=== PATIENT | male | born 1990 | race Caucasian/White ===

== ENCOUNTER 2021-09-25 11:06 | Emergency (ER) | payer OTHER, SELFPAY ==
[2021-09-25 11:10] VITALS: BP 142/91; PULSE 89; RESP 18; TEMP 36.7; O2SAT 99; BMI 27.2
--- NOTE | 2021-09-25 11:13 | DI.RAD.S_ITS ---
PROCEDURE: XR ANKLE LT MIN 3V INDICATIONS: rolled left ankle, + swelling, no overt deformity TECHNIQUE: 3 views of the ankle were acquired. COMPARISON: None. FINDINGS: Bones: No fractures or dislocations. Ankle mortise is normally aligned. No suspicious bony lesions. Soft tissues: No tibiotalar joint effusion. Achilles tendon appears normal. Generalized soft tissue swelling noted. IMPRESSION: Soft tissue swelling without fracture or foreign body Approved by: Navi Mulligan M.D. on 09/25/2021 at 10:48
[2021-09-25 11:15] VITALS: PULSE 70
--- NOTE | 2021-09-25 12:01 | ED.LOWEXIN ---
HPI - Extremity Injury (Lower) General Chief Complaint: Extremity Injury, Lower Stated Complaint: Rolled left ankle, swollen Time Seen by Provider: 09/25/21 12:01 Source: patient Mode of arrival: Ambulatory History of Present Illness HPI Narrative: Patient is a 31-year-old male who presents with left ankle pain. He states that he was playing Frisbee golf yesterday when he rolled it. He has been able to walk on it without difficulty but is quite swollen. No numbness tingling or weakness. Related Data Home Medications Medication Instructions Recorded Confirmed No Known Home Medications 09/25/21 09/25/21 Allergies Allergy/AdvReac Type Severity Reaction Status Date / Time No Known Drug Allergies Allergy Verified 09/25/21 11:12 Review of Systems Review of Systems Narrative: GENERAL: Denies chills,fever HEENT: Denies throat pain RESPIRATORY: Denies dyspnea, cough, wheezing CARDIOVASCULAR: Denies chest pain, palpitations GASTROINTESTINAL: Denies nausea, vomiting MUSCULOSKELETAL: See HPI SKIN: No rash, no laceration, no pruritus NEUROLOGIC: Denies weakness, dizziness, headache, numbness 8 point review of systems is negative except for those stated above and HPI Patient History Social History Smoking Status: Never smoker Smoking Status: Never smoker alcohol intake frequency: 0-2 drinks per day Substance Use Type: does not use Exam Initial Vital Signs Initial Vital Signs: Vital Signs Temperature 98.1 F 09/25/21 11:10 Pulse Rate 89 09/25/21 11:10 Respiratory Rate 18 09/25/21 11:10 Blood Pressure 142/91 H 09/25/21 11:10 Pulse Oximetry 99 09/25/21 11:10 GENERAL: Well-appearing, well-nourished and in no acute distress. CARDIOVASCULAR: peripheral pulses in tact, cap refill <2 sec RESPIRATORY: No respiratory distress, speaks in full sentences without difficulty EXTREMITIES: Normal range of motion, no clubbing or edema. Neurovascularly intact Left lower extremity swelling bilaterally distal pedal pulse intact Achilles intact knee is stable ambulatory without difficulty NEUROLOGICAL: Cranial nerves II through XII grossly intact. Normal gait and speech. SKIN: Warm, dry, no petechiae, no rashes or lesions. Course Orders Ordered: ED Orders 09/25/21 11:13 XR ankle LT min 3V Stat Vital Signs Vital signs: Vital Signs - 8 hr 09/25/21 11:10 09/25/21 11:15 Temperature 98.1 F Pulse Rate 89 Pulse Rate [Left Dorsalis Pedis] 70 Respiratory Rate 18 Blood Pressure 142/91 H Pulse Oximetry 99 MDM - Extremity Injury (Lower) Imaging Data Extremity x-ray #1: Radiologist's Impression: PROCEDURE:? XR ANKLE LT MIN 3V ? INDICATIONS:? rolled left ankle, + swelling, no overt deformity ? TECHNIQUE:? 3 views of the ankle were acquired.? ? COMPARISON:? None. ? FINDINGS:? ? Bones:? No fractures or dislocations.? Ankle mortise is normally aligned.? No suspicious bony lesions.? ? Soft tissues:? No tibiotalar joint effusion.? Achilles tendon appears normal.? Generalized soft tissue swelling noted. ? ? IMPRESSION:? Soft tissue swelling without fracture or foreign body ? Approved by: Navi Mulligan M.D. on 09/25/2021 at 10:48? Discharge Plan Departure Patient Disposition: Home Clinical Impression: Ankle sprain and strain Instructions: DI for Ankle Sprain Activity Restrictions/Additional Instructions: *You have been diagnosed with left ankle sprain *What to do: Increase activity as tolerated weight bear as tolerated elevate ice try Jaydon wrap for ankle brace as needed *Continue to take medications as directed Ibuprofen 600 mg every 6 hours if needed for [id number] pain *Follow up with your primary care provider in 2-3 days or call [phone] *Return to ER if you should have increasing pain swelling or persistent pain for more than 10 days or any new, worsening or concerning symptoms Prescriptions: No Action No Known Home Medications 0RF
== END 2021-09-25 12:14 | disposition home or self-care (01) ==
PROVIDERS: Emergency Provider Emergency Medicine
DX: S93.402A Sprain of unspecified ligament of left ankle, initial encounter (principal); X50.1XXA Overexertion from prolonged static or awkward postures, initial encounter; Y93.74 Activity, frisbee
CPT/HCPCS: 73610; 99283

== ENCOUNTER 2021-10-06 13:25 | Emergency (ER) | payer OTHER, SELFPAY ==
[2021-10-06 13:59] VITALS: BP 158/86; PULSE 91; RESP 17; TEMP 36.6; O2SAT 97; BMI 27.9
--- NOTE | 2021-10-06 14:02 | DI.RAD.S_ITS ---
PROCEDURE: XR FOOT LT MIN 3V INDICATIONS: injury TECHNIQUE: 3 views of the foot were acquired. COMPARISON: None. FINDINGS: Bones: No acute fractures or dislocations. No suspicious bony lesions. Soft tissues: No suspicious soft tissue calcification. IMPRESSION: No acute osseous abnormality. If clinical suspicion and/or symptoms persist, additional imaging with repeat plain films, or advanced imaging (e.g. CT, MRI) may be helpful for further assessment. Dictated by: Keyon Beaulieu M.D. on 10/06/2021 at 14:37 Approved by: Keyon Beaulieu M.D. on 10/06/2021 at 14:40
--- NOTE | 2021-10-06 15:42 | ED.LOWEXIN ---
HPI - Extremity Injury (Lower) <SHERINE Connelly - Last Filed: 10/06/21 15:59> General Chief Complaint: Extremity Injury, Lower Stated Complaint: Pain in bottom of foot after sprained ankle Time Seen by Provider: 10/06/21 15:26 Source: patient Mode of arrival: Ambulatory History of Present Illness HPI Narrative: 31-year-old male presents to the emergency department with left lateral and medial ankle pain after he sprained his ankle in [place] last week. Patient has been ambulating but states that it is still painful, less painful on the lateral aspect now bit more painful on the medial side. He denies any plantar foot pain, dorsum foot pain. He states that there is some swelling, some bruising, he has had x-rays which did not show a fracture, he states that he is leaving for [place] tomorrow, and then to [place] afterwards and is concerned that he has been walking so much on it in is still is painful after week. Patient denies taking any pain medications today for this. Patient states that he is able to walk on it, he was walking on it a lot in [place] he states. Related Data Home Medications Medication Instructions Recorded Confirmed No Known Home Medications 09/25/21 10/06/21 Allergies Allergy/AdvReac Type Severity Reaction Status Date / Time No Known Drug Allergies Allergy Verified 10/06/21 14:01 Review of Systems <SHERINE Connelly - Last Filed: 10/06/21 15:59> Review of Systems Narrative: General: denies fever, chills, malaise, sweats, fatigue Head/Neck: denies headache, neck pain, dizziness Eyes: denies visual changes, eye pain Cardio: denies chest pain, palpitations, edema Respiratory: denies dyspnea, cough, orthopnea GI: denies abdominal pain, nausea, vomiting, or diarrhea : denies dysuria, hematuria, urinary retention, frequency or incontinence MSK: Endorses left ankle pain, denies muscle weakness Skin: denies rash, itching, skin lesions or other Neuro: denies numbness, tingling Patient History <SHERINE Connelly - Last Filed: 10/06/21 15:59> Social History Smoking Status: Never smoker Smoking Status: Never smoker alcohol intake frequency: a few times a month Substance Use Type: does not use Exam <SHERINE Connelly - Last Filed: 10/06/21 15:59> Narrative Exam Narrative: Independently reviewed vitals signs and nursing notes. General: Cooperative, comfortable, in no acute distress, well developed and well groomed Head/Neck: Normal visual inspection and supple, atraumatic, no JVD or lymphadenopathy. Normal facial exam Eyes: Pupils equal round and reactive, EOMI, conjunctiva normal, no scleral icterus or injections Nose: External nose normal, nares patent, no rhinorrhea, without purulent drainage Mouth/Throat: uvula midline, moist mucus membranes Cardio: Regular rate and rhythm, no peripheral edema, warm extremities Respiratory: Normal respiratory effort, able to speak in complete sentences without audible wheezing, stridor, or rales. No retractions. MSK: Moves all extremities, neurovascularly intact, no pain over medial or lateral malleolus, no pain over the proximal 5th metatarsal, edema and ecchymosis distal to medial and lateral malleoli, tender over her tibial calcaneal ligament, and tibiaonavicular ligament, range of motion intact, dorsiflexion and extension without deficit, cap refill less than 2 seconds, PT and DP pulses are 2+, no pain over Achilles tendon, 1st MTP joint Skin: Normal capillary refill, no rash Neuro: Normal speech and cognition, normal gait, A&O x3, tone normal, moves all extremities Psych: Mental status is grossly normal, speech is clear, congruent mood, normal affect Initial Vital Signs Initial Vital Signs: Vital Signs Temperature 98 F 10/06/21 13:59 Pulse Rate 91 H 10/06/21 13:59 Respiratory Rate 17 10/06/21 13:59 Blood Pressure 158/86 H 10/06/21 13:59 Pulse Oximetry 97 10/06/21 13:59 <Carlos Smith DO - Last Filed: 10/06/21 16:05> Initial Vital Signs Initial Vital Signs: Vital Signs Temperature 98 F 10/06/21 13:59 Pulse Rate 91 H 10/06/21 13:59 Respiratory Rate 17 10/06/21 13:59 Blood Pressure 158/86 H 10/06/21 13:59 Pulse Oximetry 97 10/06/21 13:59 Course <SHERINE Connelly - Last Filed: 10/06/21 15:59> Orders Ordered: ED Orders 10/06/21 14:02 XR foot LT min 3V Stat Discontinued Medications Acetaminophen (Acetaminophen 325 Mg Tablet) 975 mg PO NOW ONE Stop: 10/06/21 15:32 Last Admin: 10/06/21 15:53 Dose: 975 mg Documented by: ASHLYNETERSON Ketorolac Tromethamine (Ketorolac 30 Mg/Ml Vial) 15 mg IM NOW ONE Stop: 10/06/21 15:32 Last Admin: 10/06/21 15:53 Dose: 15 mg Documented by: KPETERSON Vital Signs Vital signs: Vital Signs - 8 hr 10/06/21 13:59 Temperature 98 F Pulse Rate 91 H Respiratory Rate 17 Blood Pressure 158/86 H Pulse Oximetry 97 <Carlos Smith DO - Last Filed: 10/06/21 16:05> Orders Ordered: ED Orders 10/06/21 14:02 XR foot LT min 3V Stat Discontinued Medications Acetaminophen (Acetaminophen 325 Mg Tablet) 975 mg PO NOW ONE Stop: 10/06/21 15:32 Last Admin: 10/06/21 15:53 Dose: 975 mg Documented by: KPETERSON Ketorolac Tromethamine (Ketorolac 30 Mg/Ml Vial) 15 mg IM NOW ONE Stop: 10/06/21 15:32 Last Admin: 10/06/21 15:53 Dose: 15 mg Documented by: KPETERSON Vital Signs Vital signs: Vital Signs - 8 hr 10/06/21 13:59 Temperature 98 F Pulse Rate 91 H Respiratory Rate 17 Blood Pressure 158/86 H Pulse Oximetry 97 MDM - Extremity Injury (Lower) <SHERINE Connelly - Last Filed: 10/06/21 15:59> Imaging Data Extremity x-ray #1: Radiologist's Impression: PROCEDURE:? XR FOOT LT MIN 3V ? INDICATIONS:? injury ? TECHNIQUE:? 3 views of the foot were acquired.? ? COMPARISON:? None. ? FINDINGS:? ? Bones:? No acute fractures or dislocations.? No suspicious bony lesions.? ? Soft tissues:? No suspicious soft tissue calcification. ? ? IMPRESSION:? No acute osseous abnormality.? If clinical suspicion and/or symptoms persist, additional imaging with repeat plain films, or advanced imaging (e.g. CT, MRI) may be helpful for further assessment. ? ? Dictated by: Keyon Beaulieu M.D. on 10/06/2021 at 14:37 ? ? Approved by: Keyon Beaulieu M.D. on 10/06/2021 at 14:40 ? MDM Narrative Medical decision making narrative: 31-year-old male returns to the emergency department for ongoing left ankle pain from an injury which occurred before to 2. Patient was x-rayed on 09/25/2021 which showed soft tissue swelling of his left ankle without fracture or foreign body, today he had a foot x-ray of his left foot which showed no acute osseous abnormality, no suspicious soft tissue calcification, no tenderness on exam over medial or lateral malleoli, Achilles, 5th metatarsal, dorsum of mid foot, no plantar ecchymosis, mild edema and ecchymosis present distal to medial and lateral malleoli. Patient states that he is traveling, going to [place] tomorrow and then [facility] after that, he was fitted in a walking boot, given crutches, instructed to decrease weight-bearing, ice it, elevate and take ibuprofen/Tylenol as necessary for his pain. He was given referral for Orthopedics if this does not improve over the next 2 weeks, he can follow-up with them about this. Differential diagnosis include posterior tibial tendinitis, sprain of PTTL/ATTL/TCL/TNL, avulsion fracture, ATFL sprain, neuropathic arthropathy. Patient is appropriate and amenable to discharge home. Vital signs are stable on repeat examination is unremarkable. Patient has been informed of results. Patient has been given strict return to ER precautions for any new or worsening symptoms. Patient understands to follow up closely with outpatient providers as instructed. Patient understands plan and agrees to discharge home. All questions and concerns answered at this time. Discharge Plan Departure Patient Disposition: Home Clinical Impression: Ankle sprain and strain Instructions: Ankle Sprain Activity Restrictions/Additional Instructions: *You have been diagnosed with an ankle sprain/strain. These can take a long time to heal especially if you are continuing to use your foot as much as you have been. Please start taking ibuprofen every 6-8 hours, and Tylenol every 4-6 hours for your pain. Keep it in the boot, keep it elevated as much as possible, ice it while resting, this will help the swelling go down and the pain. Please follow-up with orthopedics when you get back from [place] if this is still swollen, painful, and your not able to walk on it. *What to do: *Please continue to take your regular medications as directed. [ ] New medication prescriptions sent to your pharmacy: [ ] [ ] New medication written as a paper prescription [ x] No new medications given *Please follow up with your primary care provider in 2-3 days, call for an appointment. Let them know you were seen in the Emergency Department and that we ask that you be seen in follow up. We will electronically transmit a record of today's note if your PCP is in our system *If you do not have a primary care provider please contact the [facility] Resource line at [phone]. They will ask some questions about your medical history and help get you set up with a doctor in the community. *Return to Emergency Department if you should have any new, worsening or concerning symptoms, such as [fever greater than 101F, chills, worsening pain, persistent vomiting or other bothersome symptoms] Prescriptions: No Action No Known Home Medications 0RF Referrals: [facility] [Provider Group] <Carlos Smith, DO - Last Filed: 10/06/21 16:05> Cosign ED Attending Cosamyature Attestation: Dr Smith Co-Sign Statement: I was available for consultation during this patient's emergency department visit. This chart is signed by myself for administrative purposes only. I did not have direct contact with this patient during this visit. They were seen independently by the APC.
[2021-10-06] MEDS: ACETAMINOPHEN 325 MG TABLET 975 MG PO (15:53)
[2021-10-06] MEDS: KETOROLAC 30 MG/ML VIAL 15 MG IM (15:53)
[2021-10-06 16:08] VITALS: BP 132/92; PULSE 95; O2SAT 98
--- NOTE | 2021-10-07 03:07 | PC.NURSE ---
Pt returned to lemon picker crutches, given as per order from yesterday visit.
== END 2021-10-06 16:10 | disposition home or self-care (01) ==
PROVIDERS: Emergency Provider Nurse Practitioner Critical Care Medicine
DX: S93.402A Sprain of unspecified ligament of left ankle, initial encounter (principal); X58.XXXA Exposure to other specified factors, initial encounter
CPT/HCPCS: 73630; 96372; 99283; J1885